=== PATIENT | male | born 1950 | race Asian ===

== ENCOUNTER 2018-08-01 09:08 | Emergency (ER) | payer OTHER ==
[2018-08-01 10:20] LABS: BASOPHIL % 0.2 % (0-2); PLATELET COUNT 259 x10^3mcL (130-400); RED CELL DISTRIBUTION WIDTH 12.9 % (11.5-14.5)
[2018-08-01 10:24] LABS: CALCIUM 7.9 mg/dL (8.5-10.1); CARBON DIOXIDE 33.9 mmol/L (21-32); CHLORIDE SERUM 100 mmol/L (98-107); GFR1 > 60 mL/min; GLUCOSE SERUM 116 mg/dL (74-106); SODIUM SERUM 137 mmol/L (136-145)
[2018-08-01 10:28] LABS: ALBUMIN 2.9 g/dL (3.4-5.0); ALKALINE PHOSPHATASE 86 U/L (46-116); ALT/SGPT 30 U/L (16-63); AST/SGOT 21 U/L (15-37); CHOLESTEROL 153 mg/dL (<200); HDL CHOLESTEROL 54 mg/dL (40-60); TOTAL PROTEIN, SERUM 7.1 g/dL (6.4-8.2)
[2018-08-01] MEDS ORDERED: LOSARTAN POTASS50 M1 PO (11:41)
[2018-08-01] MEDS ORDERED: ATIVAN1 MG PO (11:41)
[2018-08-01] MEDS ORDERED: TRAMADOL HCL50 MG PO (11:43)
[2018-08-01] MEDS ORDERED: SYNTHROID0.15 MG PO (11:44)
[2018-08-01] MEDS ORDERED: CARDIZEM60 MG PO (11:45)
[2018-08-01 13:25] VITALS: BP 130/86
== END 2018-08-01 13:25 | disposition home or self-care (01) ==
LOC: ED 09:08
PROVIDERS: Emergency Medicine
DX: J38.3 Other diseases of vocal cords (principal); G47.9 Sleep disorder, unspecified; I10 Essential (primary) hypertension; F41.9 Anxiety disorder, unspecified; M19.90 Unspecified osteoarthritis, unspecified site
CPT/HCPCS: J2930; Q0092

== ENCOUNTER 2018-08-21 18:48 | Emergency (ER) | payer OTHER ==
[~2018-08-21] VITALS: Ht 165.1 cm; Wt 81.6 kg
[~2018-08-21 18:48] MED LIST: ATIVAN1 MG PO; CARDIZEM60 MG PO; LOSARTAN POTASS50 M1 PO; SYNTHROID0.15 MG PO; TRAMADOL HCL50 MG PO
[2018-08-21 18:50] VITALS: Ht 165.1 cm; Wt 81.6 kg
[2018-08-21 20:50] VITALS: BP 171/92
== END 2018-08-21 20:50 | disposition home or self-care (01) ==
LOC: ED 18:48
DX: J38.01 Paralysis of vocal cords and larynx, unilateral (principal); R06.1 Stridor; F41.9 Anxiety disorder, unspecified; I10 Essential (primary) hypertension; E03.9 Hypothyroidism, unspecified; M19.90 Unspecified osteoarthritis, unspecified site; Z90.89 Acquired absence of other organs; Z85.850 Personal history of malignant neoplasm of thyroid
CPT/HCPCS: J1100

== ENCOUNTER 2018-08-25 16:50 | Emergency (ER) | payer OTHER ==
[~2018-08-25] VITALS: Ht 165.1 cm; Wt 80.3 kg
[2018-08-25 16:53] VITALS: Ht 165.1 cm; Wt 80.3 kg
[2018-08-25 17:25] VITALS: BP 137/72
== END 2018-08-25 18:48 | disposition home or self-care (01) ==
LOC: ED 16:50
DX: J38.01 Paralysis of vocal cords and larynx, unilateral (principal); R06.00 Dyspnea, unspecified; J45.909 Unspecified asthma, uncomplicated; I10 Essential (primary) hypertension; F41.9 Anxiety disorder, unspecified; M19.90 Unspecified osteoarthritis, unspecified site; Z90.89 Acquired absence of other organs; Z85.850 Personal history of malignant neoplasm of thyroid
CPT/HCPCS: J1100